=== PATIENT | female | born 1985 | race Caucasian/White ===

== ENCOUNTER 2020-09-05 13:32 | Outpatient (CLI) | payer OTHER ==
[~2020-09-05 13:32] MED LIST: BUFFERED LIDOCAINE 10 ML SYRINGE ONE; ROPIVACAINE 0.5% PF 20 ML AMPULE ONE; TRIAMCINOLONE 40 MG/ML VIAL ONE
--- NOTE | 2020-09-05 16:00 | Ultrasound Report ---
PROCEDURE: Injection Single Tendon INDICATIONS: BICIPITAL TENDINITIS, R SHLDR TECHNIQUE: The indications, alternatives, benefits, risks, and complications of the procedure were explained to the patient. Written informed consent was obtained and placed in the chart. The patient was placed in an appropriate position on the fluoroscopy table, and a site was chosen for percutaneous access un telly ultrasound guidance. Local anesthetic was administered using a 1% lidocaine solution. A hypoder carol or spinal needle was then used to access the symptomatic joint. Intra-articular location of the needle tip was confirmed by real time ultrasound imaging, followed by steroid administration. The ne edle was then withdrawn, and a bandage applied to the puncture site. FINDINGS: Joint injected: Right biceps tendon Medications injected: 2.5 mL of 40 mg/mL Kenalog and 0.5% Ropivacaine mixture. Patient's pain before injection: 6 of 10. Patient's pain after injection: 6 of 10. Complications: None. IMPRESSION: Successful ultrasound guided administration of steroid and anaesthetic solution into the joint. Reviewed by: Leatha Forbes MD on 09/05/2020 3:59 PM PDT Approved by: Leatha Forbes MD on 09/05/2020 3:59 PM PDT Station ID: [id number]
[2020-09-05] MEDS ORDERED: BUFFERED LIDOCAINE 10 ML SYRINGE IU ONE (17:00)
[2020-09-05] MEDS ORDERED: TRIAMCINOLONE 40 MG/ML VIAL IM ONE (17:02)
[2020-09-05] MEDS ORDERED: ROPIVACAINE 0.5% PF 20 ML AMPULE IU ONE (17:04)
== END 2020-09-05 13:33 | disposition home or self-care (01) ==
LOC: DI 13:32
PROVIDERS: ATTEND Orthopaedic Surgery
DX: M75.21 Bicipital tendinitis, right shoulder (principal)
CPT/HCPCS: 20550